=== PATIENT | male | born 1955 | race Caucasian/White ===

== ENCOUNTER → 2024-09-08 10:00 | Outpatient (REF) | payer MEDICARE, SELFPAY | LOC: RCS 10:00 | PROVIDERS: ATTENDING PHYSICIAN Internal Medicine; FAMILY PHYSICIAN Student in an Organized Health Care Education/Training Program | DX: I25.10 Atherosclerotic heart disease of native coronary artery without angina pectoris (principal); E78.00 Pure hypercholesterolemia, unspecified; I48.0 Paroxysmal atrial fibrillation; I39 Endocarditis and heart valve disorders in diseases classified elsewhere; R06.09 Other forms of dyspnea | CPT/HCPCS: 93306 ==

== ENCOUNTER → 2024-11-08 07:39 | Outpatient (REF) | payer MEDICARE, SELFPAY | LOC: HWRCS 07:39 | PROVIDERS: ATTENDING PHYSICIAN Internal Medicine; FAMILY PHYSICIAN Internal Medicine | DX: R60.0 Localized edema (principal); I25.10 Atherosclerotic heart disease of native coronary artery without angina pectoris; Z95.2 Presence of prosthetic heart valve; I48.0 Paroxysmal atrial fibrillation | CPT/HCPCS: 78452; 93017; A9500; J2785 ==

== ENCOUNTER 2024-11-29 07:55 | Day surgery (SDC) | payer MEDICARE, SELFPAY ==
[2024-11-29] VITALS (11 sets, daily range): BP systolic 79–123; BP diastolic 46–89; BMI 27.8
[2024-11-29] MEDS: LOW STRENGTH ASPIRIN 81 MG PO (09:00)
--- NOTE | 2024-11-29 16:06 | ITS.CL.PN ---
Accident Examiner - Procedure Note
Procedure
Procedure Note:
CARDIAC CATHETERIZATION REPORT
Date of Procedure: 11/29/2024
Referring: Dr. Andrea May MD, PhD
Indication: newly reduced ejection fraction, atypical chest pain and shortness of breath, positive cardiac stress test
PROCEDURE(S)
1. right heart catheterization
2. left heart catheterization
3. coronary angiography
ACCESS
1. 6F right radial artery (closure: radial band)
2. 5F right antecubital vein (closure: manual hemostasis)
CATHETERS
1. 5F [place]
2. 6F JR4
3. 6F JL3.5
MODERATE SEDATION: 30 minutes of moderate sedation was utilized. An independent medical stenographer was present to assist with and help manage the patient's level of consciousness and physiologic status.
HEMODYNAMIC DATA
LV 114/13 (EDP 32) mmHg - of note there is near diastasis (LVEDP 32, diastolic BP 44 at end diastole, suggestive of known aortic valve insufficiency)
AO 115/44 (mean 74) mmHg
RA 18 mmHg
RV 45/9 (EDP 19) mmHg
PA 45/22 (mean 31) mmHg
PCWP 24 mmHg
SaO2 90.6%
SvO2 57.3%
Hb 12.8 g/dL
CO/CI 4.25/2.16 L/min/m2
SVR 1186 dsc*-5
PVR 1.7 Wood units
CORONARY ANGIOGRAPHY
Dominance: right
LM: large/normal
LAD: large vessel giving rise to a moderate caliber D1 and several small diagonal branches before wrapping around the apex. There are mild luminal irregularities only.
LCx: large vessel giving rise to a moderate caliber OM1/ramus, small OM2, moderate caliber OM3, several small LPL branches, and a moderate caliber LPDA. There is a focal 40-50% ostial stenosis and a widely patent stent in the mid vessel. There are
otherwise mild luminal irregularities only.
RCA: small non-dominant vessel with minimal CAD
RADIATION: dose 279 mGy; DAP 21.7 Gy*cm2; fluoroscopy time 4.1 min
CONCLUSIONS
1. Nonobstructive coronary artery disease as described in a right dominant system
2. Elevated biventricular filling pressures, moderate postcapillary pulmonary hypertension, and borderline reduced cardiac index.
3. Near diastases of LV/AO pressures (LVEDP 32 mmHg, and AO diastolic 44 mmHg) in keeping with known aortic insufficiency.
RECOMMENDATIONS
1. Continued aggressive secondary prevention of CAD.
2. GDMT for HFrEF. Will start Entresto.
3. 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
Copy to: Dr. Andrea May MD, PhD (cotton picking machine operator); Dr. Papa Ontiveros MD (PCP)
Signed: Isaac Garcia MD, PhD
== END 2024-11-29 14:00 | disposition home or self-care (01) ==
LOC: CATH 07:55
PROVIDERS: ATTENDING PHYSICIAN Internal Medicine Cardiovascular Disease; FAMILY PHYSICIAN Internal Medicine; OTHER PHYSICIAN Student in an Organized Health Care Education/Training Program; OTHER PHYSICIAN Thoracic Surgery (Cardiothoracic Vascular Surgery)
DX: I25.10 Atherosclerotic heart disease of native coronary artery without angina pectoris (principal); R06.02 Shortness of breath; R07.89 Other chest pain; I27.20 Pulmonary hypertension, unspecified; I11.0 Hypertensive heart disease with heart failure; I50.22 Chronic systolic (congestive) heart failure; I35.1 Nonrheumatic aortic (valve) insufficiency; I25.2 Old myocardial infarction; Z95.5 Presence of coronary angioplasty implant and graft; Z95.2 Presence of prosthetic heart valve; E78.00 Pure hypercholesterolemia, unspecified; I48.0 Paroxysmal atrial fibrillation; Z79.82 Long term (current) use of aspirin; I48.3 Typical atrial flutter; Z79.899 Other long term (current) drug therapy; Z95.810 Presence of automatic (implantable) cardiac defibrillator
CPT/HCPCS: 99152; 99153; 93460; C1769; C1894; Q9967